=== PATIENT | male | born 1970 | race Caucasian/White ===

== ENCOUNTER 2019-07-03 16:01 | Emergency (ER) | payer OTHER, SELFPAY ==
[2019-07-03 16:02] VITALS: BP 176/96; PULSE 73; RESP 16; TEMP 37; O2SAT 98; BMI 29.6
--- NOTE | 2019-07-03 16:06 | EKG12_ITS ---
Test Reason : ARM NUMB Blood Pressure : / mmHG Vent. Rate : 065 BPM Atrial Rate : 065 BPM P-R Int : 136 ms QRS Dur : 086 ms QT Int : 388 ms P-R-T Axes : 017 000 -02 degrees QTc Int : 403 ms Normal sinus rhythm Normal ECG Confirmed by [place] HOWE, COLBY ([id number]), acquisition editor TATI DA SILVA ([id number]) on 07/05/2019 11:59:47 AM Referred By: LOUIS Confirmed By:COLBY OSBORNE MD
--- NOTE | 2019-07-03 16:06 | CT_ITS ---
STUDY: CT CERVICAL SPINE WITHOUT CONTRAST REASON FOR EXAM: Male, 48 years old. Left arm numbness and tingling RADIATION DOSAGE (If Supplied By Facility): CTDIvol = ( 49.63 ) mGy, DLP = ( 1672.47 ) mGycm TECHNIQUE: High resolution transaxial imaging was performed without contrast material. Sagittal and coronal images were reconstructed. Individualized dose optimization techniques were used for this CT. COMPARISON: None FINDINGS: Normal craniovertebral junction. Normal anterior atlantoaxial articulation. Normal odontoid process. Normal cervical lordosis. Normal vertebral bodies and posterior osseous elements. C2-3: Normal endplates. Normal disc height and morphology. Normal central canal and intervertebral neuroforamina. C3-4: Normal endplates. Normal disc height and morphology. Normal central canal and intervertebral neuroforamina. C4-5: Normal endplates. Normal disc height and morphology. Normal central canal and intervertebral neuroforamina. C5-6: Anterior spondylosis with mild disc space narrowing. Normal central canal and intervertebral neuroforamina. C6-7: Anterior spondylosis with mild disc space narrowing. Normal central canal and intervertebral neuroforamina. C7-T1: Normal endplates. Normal disc height and morphology. Normal central canal and intervertebral neuroforamina. Normal visualized soft tissue structures. CT/Spine Cervical without Contras IMPRESSION: Mild degenerative changes without critical canal stenosis. Electronically Signed: Pete Amaya MD ([place]) at 17:10 EST , Service support ,
--- NOTE | 2019-07-03 16:06 | CT_ITS ---
STUDY: CT BRAIN WITHOUT CONTRAST REASON FOR EXAM: Male, 48 years old. Left arm numbness and paresthesia with tingling RADIATION DOSAGE (If Supplied By Facility): CTDIvol = ( 49.63 ) mGy, DLP = ( 1672.47 ) mGycm TECHNIQUE: Transaxial CT imaging of the brain was performed without administration of intravenous contrast material. Individualized dose optimization techniques were used for this CT. COMPARISON: No relevant priors. FINDINGS: Normal soft tissue structures. Normal calvarium. Normal size ventricles and extra-axial spaces for the patient''s age. Normal white matter tracts of the cerebral hemispheres. Normal basal ganglia and thalami. Normal brainstem. Normal cerebellum. There is no intracranial hemorrhage. There are no findings of an acute ischemic infarction. Normal visualized paranasal sinuses. CT/Brain/Head without Contrast IMPRESSION: Normal unenhanced CT scan of the brain. Electronically Signed: Pete Amaya MD ([place]) at 17:08 EST , Service support ,
--- NOTE | 2019-07-03 16:08 | ED.VIS.GEN ---
History of Present Illness Chief Complaint: Numb/Ting Informant: Patient Onset: Today Narrative: Brought directly back from triage with left arm numbness awakening at 10 AM, 6 hours ago. Denies any weakness. No headache or neck pain. No chest pains. No previous similar symptoms. Denies speech changes or hemiparesis. No history of similar. States symptoms isolated local region of the arm. He is right-hand dominant. History of lumbar disc herniation with surgery in the past 10 years ago at [place]. Prior similar symptoms: No Past Medical History - Allergies and Home Meds Allergies/Adverse Reactions: Allergies No Known Allergies Allergy (Verified 07/03/19 16:07) Primary Care Physician: Doni Quinn [Primary Care Provider] - Smoking Status: Never smoker Review of Systems General: Denies: Chills, Fever, Sweats Eyes: Denies: Visual changes - bilaterally, Diplopia ENT: Denies: Rhinorrhea, Sore throat Cardiovascular: Denies: Chest pain, Palpitations Respiratory: Denies: Dyspnea, Cough, Dyspnea on exertion Gastrointestinal: Denies: Abdominal pain, Nausea, Vomiting, Diarrhea, Melena, Hematochezia Genitourinary: Denies: Dysuria, Hematuria, Frequency Musculoskeletal: Denies: Back pain, Extremity Pain Skin: Denies: Rash, Wounds Neurological: Reports: Parasthesia. Denies: Headache, Weakness, Numbness Physical Exam Vital Signs/Narrative: Vital Signs Temp Pulse Resp BP Pulse Ox 07/03/19 16:02 98.6 F 73 16 176/96 H 98 Inital Vital Signs reviewed: Yes General: Well nourished, Well developed, No Acute Distress Head: Normocephalic, Atraumatic Eyes: Perrl, EOMI ENT: Moist mucous membranes, No rhinorrhea Neck: Supple, Nontender, - - Spurling's test negative. Cardiovascular: Regular rate, Regular rhythm, No murmurs Respiratory: No distress, CTA bilaterally, Chest nontender Abdomen: Soft, Nontender, Nondistended, Normal bowel sounds Back: Nontender, Normal Inspection Extremities: Nontender, No edema Skin: Normal color, No rash Neurological: Alert, Oriented x3, Cranial nerves II-XII grossly intact, Normal Strength, - - Patient with paresthesia along C6 dermatome on left, there is no weakness. Psychological: Normal affect, Normal Mood Diagnostic/Tx/Re-eval Clinical Impression(s) from Imaging Studies Brain CT 07/03/19 16:06 IMPRESSION: Normal unenhanced CT scan of the brain. Electronically Signed: Pete Amaya MD ([place]) at 17:08 EST , Service support , Cervical Spine CT 07/03/19 16:06 IMPRESSION: Mild degenerative changes without critical canal stenosis. Electronically Signed: Pete Amaya MD ([place]) at 17:10 EST , Service support , - EKG Initial EKG Interpretation: Sinus Rhythm - Sinus rate of 65, no ST changes. T wave inversion leads III. - Medical Decision Making Patient presentation is not concerning of stroke presentation. He has C6 dermatome paresthesias without weakness or pain. This is on the left side. With his initial report concerns for potential heart symptoms without chest pain I did obtain EKG noted nonspecific T wave inversion in leads III. Head CT negative. Cervical spine CT obtained no degenerative changes especially at C5-C6 C6-C7 which correlates to the patient's symptoms. We will monitor symptoms, he will follow-up with his PCP for further testing. Signs and symptoms discussed return. All questions were answered. ED Disposition - Plan for ED Patient: Disposition: Home or Assisted Living Diagnosis: C6 radiculopathy Instructions: NEUROPATHY, Peripheral Referrals: Doni Quinn [Primary Care Provider] - 3-5 Days Additional Instructions: Head CT negative. CT cervical spine notes degenerative changes of C5-C6, C6-C7 correlating with her symptoms. Monitor follow-up with your PCP for further testing. Return if any worsening symptoms.
--- NOTE | 2019-07-03 16:09 | NURSING ---
NO OLD EKGS
[2019-07-03 18:14] VITALS: BP 127/82; O2SAT 97
== END 2019-07-03 18:14 | disposition home or self-care (01) ==
PROVIDERS: Emergency Provider Emergency Medicine; Family Provider Family Medicine; PCP Family Medicine
DX: M54.12 Radiculopathy, cervical region (principal)
CPT/HCPCS: 70450; 72125; 93005; 99282

== ENCOUNTER → 2024-10-11 | Outpatient (CLI) | payer OTHER, SELFPAY ==
--- NOTE | 2024-10-11 14:56 | VDLE_ITS ---
Reason For Study Reason For Study: Left leg swelling Procedure LEFT This is a venous duplex using B-mode, color flow and CFV is compressible, spontaneous, phasic, competent, spectral Doppler. and demonstrates normal augmentation. Exam performed in department. FV is compressible, phasic, and INCOMPETENT for Patient was scanned in reverse Trendelenburg position greater than 1.0 second. during reflux assessment. POP V is compressible, spontaneous, phasic, competent and demonstrates normal augmentation. T/P Trunk is compressible. PTV is compressible. LT PerV is compressible. SFJ is INCOMPETENT and measures 0.97 cm. GSV proximal thigh measures 0.70 x 0.73 cm. GSV at knee measures 0.69 x 0.72 cm. INCOMPETENT perforators noted 20 cm and 14 cm above medial malleolus. Both perforators feed varicose veins at area of concern in calf. INCOMPETENT government minister noted 3 cm above knee. SSV mid calf is INCOMPETENT for greater than 0.5 seconds and measures 0.40 x 0.40 cm. ASV from SSV mid is INCOMPETENT for greater than 0.5 seconds and measures 0.19 x 0.19 cm. connect to GSV distal. Varicose veins that start in prox calf extend down leg and wrap posteriorly to SSV mid. VL/Venous Duplex US, Unilateral Interpretation Summary Deep veins of the left lower extremity are patent and compressible segmentally. There is no evidence of left lower extremity deep vein thrombosis. The left great saphenous vein appears patent an d compressible segmentally. Positive for reflux in the left femoral vein, saphenofemoral junction, perforat ors in mid and distal medial calf, accessory saphenous vein in calf Ordering Physician: Adrienne Cheatham Referring Physician: Doni Quinn Performed By: Rosaline Reaves RVT
== END | disposition home or self-care (01) ==
LOC: CVS 14:55
PROVIDERS: PCP Family Medicine; Referring Provider Physician Assistant; Visit Provider Physician Assistant
DX: I87.2 Venous insufficiency (chronic) (peripheral) (principal); R60.0 Localized edema; I83.892 Varicose veins of left lower extremity with other complications
CPT/HCPCS: 93971

== ENCOUNTER 2024-12-06 09:06 | Day surgery (SDC) | payer OTHER, SELFPAY ==
--- NOTE | 2024-12-06 14:45 | PCM.OPRPT ---
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 Venous duplex revealed this cluster of varicosities originate from a pair of perforators in the mid calf. He is taken now for ablation of the soil fertility specialist veins in an effort to depressurized the varicosities and avoid further hemorrhagic complications. Description of procedure: Upon obtaining informed consent and verification correct patient procedure site the patient was taken to the Corporate Law Specialist where he was positioned prepped and draped in usual sterile fashion. Timeout was then performed consultation ministered Versed and fentanyl. Ultrasound was used to evaluate the vasculature of the left lower extremity and the 2 soil fertility specialist veins identified that gave rise to the varicosities. Skin overlying these perforators were anesthetized with 1% lidocaine and skin incision made with 11 blade. The Snaptrip RF ablation stylette was then advanced through the skin incision and under ultrasound guidance advanced to the soil fertility specialist vein at its exit from the fascia until both visual confirmation and appropriate impedance were visualized. The inner dilator then withdrawn and the ablation probe activated for a total of 4 minutes. The device was then withdrawn and the soil fertility specialist vein identified and skin incision made overlying the vessel. The stylette was then advanced through the skin incision and visualized to enter into the soil fertility specialist again with appropriate impedance visualized on the monitor. The inner dilator was then withdrawn and the device activated for 4 minutes. Device was then withdrawn and dry sterile dressing applied followed by an Arnold wrap. Patient was then taken to recovery with plan discharged to home. Surgical Findings: See above Complications Complications: No
== END 2024-12-06 10:50 | disposition home or self-care (01) ==
PROVIDERS: PCP Family Medicine; Referring Provider Surgery Trauma Surgery; Visit Provider Surgery Trauma Surgery
DX: I83.892 Varicose veins of left lower extremity with other complications (principal); I87.2 Venous insufficiency (chronic) (peripheral)
CPT/HCPCS: 36475; 36476; 99152; 99153; C1888

== ENCOUNTER → 2024-12-12 | Outpatient (CLI) | payer OTHER, SELFPAY ==
--- NOTE | 2024-12-12 08:02 | VDLE_ITS ---
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 and demonstrates normal augmentation. CFV is compressible, spontaneous, phasic, competent, Procedure and demonstrates normal augmentation. This is a venous duplex using B-mode, color flow and FV is compressible, spontaneous, phasic, competent spectral Doppler. and demonstrates normal augmentation. Exam performed in department. POP V is compressible, spontaneous, phasic, competent The exam was diagnostic. and demonstrates normal augmentation. T/P Trunk is compressible. PTV is compressible. LT PerV is compressible. VL/Venous Duplex US, Unilateral Interpretation Summary Deep veins of the left lower extremity are patent and compressible segmentally. There is no evidence of left lower extremity deep vein thrombosis. The left great saphenous vein appears patent an d compressible segmentally. Ordering Physician: Adrienne Cheatahm Referring Physician: Doni Quinn Performed By: Jhonathan Benson RVT
== END | disposition home or self-care (01) ==
LOC: CVS 08:02
PROVIDERS: PCP Family Medicine; Referring Provider Surgery Trauma Surgery; Visit Provider Surgery Trauma Surgery
DX: I83.892 Varicose veins of left lower extremity with other complications (principal); I87.2 Venous insufficiency (chronic) (peripheral); Z48.812 Encounter for surgical aftercare following surgery on the circulatory system
CPT/HCPCS: 93971